=== PATIENT | male | born 1980 | race Caucasian/White ===

== ENCOUNTER 2022-04-16 07:59 | Outpatient (CLI) | payer OTHER | END 2022-04-16 08:00 | disposition home or self-care (01) | LOC: CSHWCC 07:59 | PROVIDERS: ATTEND Family Medicine | DX: E11.621 Type 2 diabetes mellitus with foot ulcer (principal); L97.429 Non-pressure chronic ulcer of left heel and midfoot with unspecified severity | CPT/HCPCS: 11042; 36416; 99203; G0463 ==

== ENCOUNTER 2022-05-31 10:33 | Emergency (ER) | payer SELFPAY ==
[2022-05-31 11:41] LABS: #Monocytes 0.7 10x3/uL (0.0-1.1); #Neutrophils 6.7 10x3/uL (1.5-8.4); %Basophils 0.3 % (0.0-2.0); %Eosinophils 0.1 % (0.0-6.0); %Monocytes 7.8 % (0.0-10.0); %Neutrophils 74.5 % (40.0-75.0); Hemoglobin 15.3 g/dL (13.5-17.5); Mean Corpuscular HGB CONC 35.2 g/dL (32.0-36.0); Mean Corpuscular Hemoglobin 28.4 pg (27.0-33.0); Mean Corpuscular Volume 80.7 fl (81.2-95.1); Mean Platelet Volume 10.4 fl (7.4-10.4); Platelet Count 208 10x3/uL (150-450); RBC Distribution Width 13.5 % (11.5-14.5); Red Blood Cell (RBC) Count 5.39 10x6/uL (4.32-5.72)
[2022-05-31 11:50] LABS: INR-International Normal Ratio 0.9; PTT 29.7 sec (22.0-33.0)
[2022-05-31 11:58] LABS: ALT (SGPT) 14 U/L (8-55); AST (SGOT) 11 U/L (5-34); Albumin 4.4 g/dL (3.5-5.0); Alkaline Phosphatase 83 U/L (40-110); Anion Gap 16 mmol/L (10-20); BUN (Urea Nitrogen) 12 mg/dL (8.9-20.6); Bilirubin, Total 1.5 mg/dL (0.2-1.2); Calc. Creatinine Clearance 0 mL/min (70-130); Calcium 9.6 mg/dL (7.8-10.44); Carbon Dioxide 25 mmol/L (22-29); Chloride 99 mmol/L (98-107); Estimated GFR 113; Globulin 3.3 g/dL (2.4-3.5); Glucose 330 mg/dL (70-105); Potassium 4.2 mmol/L (3.5-5.1); Protein, Total 7.7 g/dL (6.0-8.3); Sodium 136 mmol/L (136-145)
== END 2022-05-31 12:38 | disposition home or self-care (01) ==
LOC: CSHERS 10:33
DX: L97.529 Non-pressure chronic ulcer of other part of left foot with unspecified severity (principal); E11.621 Type 2 diabetes mellitus with foot ulcer; I10 Essential (primary) hypertension; E66.9 Obesity, unspecified; E78.00 Pure hypercholesterolemia, unspecified
CPT/HCPCS: 36415; 80053; 83605; 85025; 85610; 85730; 87040

== ENCOUNTER 2022-06-16 14:36 | Outpatient (CLI) | payer SELFPAY | END 2022-06-16 14:37 | disposition home or self-care (01) | LOC: CSHWCC 14:36 | PROVIDERS: ATTEND Nurse Practitioner Family | DX: E11.621 Type 2 diabetes mellitus with foot ulcer (principal); L97.429 Non-pressure chronic ulcer of left heel and midfoot with unspecified severity | CPT/HCPCS: 36416 ==

== ENCOUNTER 2022-06-23 08:06 | Outpatient (CLI) | payer OTHER | END 2022-06-23 08:07 | disposition home or self-care (01) | LOC: CSHWCC 08:06 | PROVIDERS: ATTEND Nurse Practitioner Family | DX: E11.621 Type 2 diabetes mellitus with foot ulcer (principal); L97.429 Non-pressure chronic ulcer of left heel and midfoot with unspecified severity | CPT/HCPCS: 99213; G0463 ==

== ENCOUNTER 2022-06-30 13:07 | Outpatient (CLI) | payer SELFPAY | END 2022-06-30 13:08 | disposition home or self-care (01) | LOC: CSHWCC 13:07 | PROVIDERS: ATTEND Nurse Practitioner Family | DX: T81.89XD Other complications of procedures, not elsewhere classified, subsequent encounter (principal) | CPT/HCPCS: 36416 ==

== ENCOUNTER 2022-07-14 08:56 | Outpatient (CLI) | payer OTHER, SELFPAY | END 2022-07-14 08:57 | disposition home or self-care (01) | LOC: CSHWCC 08:56 | PROVIDERS: ATTEND Nurse Practitioner Family | DX: T81.89XD Other complications of procedures, not elsewhere classified, subsequent encounter (principal); E11.621 Type 2 diabetes mellitus with foot ulcer; L97.419 Non-pressure chronic ulcer of right heel and midfoot with unspecified severity | CPT/HCPCS: 36416; 99213; G0463 ==

== ENCOUNTER 2023-03-30 13:20 | Inpatient (IN) | payer BC ==
[2023-03-30] MEDS ORDERED: Glucagon 1 MG/ML KIT IM PRN (13:36)
[2023-03-30] MEDS ORDERED: Dextrose 5% in Water 1,000 ML IV PRN (13:36)
[2023-03-30] MEDS ORDERED: Dextrose 50% Abboject 50 ML SYRINGE SLOW IVP PRN (13:36)
[2023-03-30] MEDS ORDERED: Ondansetron ODT 4 MG TAB PO PRN (13:48)
[2023-03-30] MEDS: Sodium Chloride 0.9% 1,000 ML IV SCH (14:24)
[2023-03-30 14:26] VITALS: BMI 34.0
[2023-03-30] MEDS ORDERED: Piperacillin/Tazobactam 3.375 GM in Sodium Chloride 0.9% 100 ML IVPB SCH ×2 (15:00→20:00)
[2023-03-30] MEDS: Vancomycin 1.5 GRAM/300 ML BAG 1.5 GM in Premix Bag 1 BAG IVPB SCH (18:35)
[2023-03-30] MEDS: Piperacillin/Tazobactam 3.375 GM in Sodium Chloride 0.9% 100 ML IVPB SCH (21:14)
[2023-03-30] MEDS: Acetaminophen 325 MG TAB PO PRN (21:14)
[2023-03-30] MEDS: Guaifenesin DM 100-10/5 ML UDCUP PO PRN (21:14)
[2023-03-30] MEDS: Famotidine 20 MG TAB PO SCH (21:15)
[2023-03-30] MEDS: Insulin Regular 300 UNITS/3 ML VIAL SC PRN (21:15)
[2023-03-31] MEDS: Vancomycin 1.5 GRAM/300 ML BAG 1.5 GM in Premix Bag 1 BAG IVPB SCH (00:20)
[2023-03-31] MEDS: Sodium Chloride 0.9% 1,000 ML IV SCH (04:46)
[2023-03-31] MEDS: Piperacillin/Tazobactam 3.375 GM in Sodium Chloride 0.9% 100 ML IVPB SCH ×3 (04:46→23:17)
[2023-03-31 05:59] LABS: #Eosinphils 0.1 10x3/uL (0.0-0.5); #Neutrophils 4.7 10x3/uL (1.5-8.4); %Basophils 0.1 % (0.0-2.0); %Eosinophils 1.7 % (0.0-6.0); %Lymphocytes 16.6 % (18.0-47.0); %Monocytes 13.9 % (0.0-10.0); %Neutrophils 67.4 % (40.0-75.0); Hematocrit 29.2 % (38.8-50.0); Hemoglobin 9.4 g/dL (13.5-17.5); Mean Corpuscular HGB CONC 32.2 g/dL (32.0-36.0); Mean Corpuscular Hemoglobin 26.8 pg (27.0-33.0); Mean Corpuscular Volume 83.2 fl (81.2-95.1); Mean Platelet Volume 10.3 fl (7.4-10.4); Platelet Count 237 10x3/uL (150-450); Red Blood Cell (RBC) Count 3.51 10x6/uL (4.32-5.72)
[2023-03-31 06:05] LABS: ALT (SGPT) 24 U/L (8-55); AST (SGOT) 18 U/L (5-34); Alkaline Phosphatase 87 U/L (40-110); Anion Gap 15 mmol/L (10-20); BUN (Urea Nitrogen) 10 mg/dL (8.9-20.6); Bilirubin, Total 0.5 mg/dL (0.2-1.2); Calc. Creatinine Clearance 229 mL/min (70-130); Calcium 7.9 mg/dL (7.8-10.44); Carbon Dioxide 21 mmol/L (22-29); Chloride 105 mmol/L (98-107); Estimated GFR 116; Globulin 3.3 g/dL (2.4-3.5); Glucose 258 mg/dL (70-105); Protein, Total 6.3 g/dL (6.0-8.3); Sodium 137 mmol/L (136-145)
[2023-03-31] MEDS: Guaifenesin DM 100-10/5 ML UDCUP PO PRN ×2 (06:21→20:10)
[2023-03-31] MEDS: Acetaminophen 325 MG TAB PO PRN (06:21)
[2023-03-31] MEDS: Insulin Regular 300 UNITS/3 ML VIAL SC PRN ×3 (06:21→17:43)
[2023-03-31 09:14] LABS: Vancomycin, Trough 8.7 ug/mL
[2023-03-31] MEDS: Famotidine 20 MG TAB PO SCH ×2 (09:51→20:09)
[2023-03-31] MEDS: VANCOMYCIN 2 GRAM/400 ML BAG 2 GM in Premix Bag 1 BAG IVPB SCH ×2 (09:52→17:43)
[2023-03-31] MEDS ORDERED: HYDROcodone/Acetaminophen 5/325 mg Tablet PO PRN (11:58)
[2023-03-31] MEDS ORDERED: Morphine 4 MG/ML VIAL SLOW IVP PRN (11:58)
[2023-03-31] MEDS: metFORMIN 500 MG TAB PO SCH (16:41)
[2023-03-31] MEDS ORDERED: Atorvastatin Calcium 20 MG TAB PO SCH (21:00)
[2023-03-31] MEDS: Lantus 1000 UNITS/10 ML VIAL SC SCH (22:11)
[2023-03-31] MEDS: NIRMATRELVIR 150 MG/RITONAVIR 100 MG PO SCH (22:14)
[2023-03-31] MEDS: HYDROcodone/Acetaminophen 10/325 mg Tablet PO PRN (23:26)
[2023-04-01] MEDS: VANCOMYCIN 2 GRAM/400 ML BAG 2 GM in Premix Bag 1 BAG IVPB SCH ×3 (02:24→18:48)
[2023-04-01 04:54] LABS: Anion Gap 12 mmol/L (10-20); BUN (Urea Nitrogen) 7 mg/dL (8.9-20.6); Calc. Creatinine Clearance 245 mL/min (70-130); Calcium 8.1 mg/dL (7.8-10.44); Carbon Dioxide 23 mmol/L (22-29); Chloride 105 mmol/L (98-107); Estimated GFR 118; Glucose 224 mg/dL (70-105); Potassium 3.9 mmol/L (3.5-5.1); Sodium 136 mmol/L (136-145)
[2023-04-01 05:03] LABS: #Monocytes 0.7 10x3/uL (0.0-1.1); #Neutrophils 5.2 10x3/uL (1.5-8.4); %Basophils 0.3 % (0.0-2.0); %Lymphocytes 18.6 % (18.0-47.0); %Monocytes 9.9 % (0.0-10.0); %Neutrophils 70.5 % (40.0-75.0); Hematocrit 28.6 % (38.8-50.0); Hemoglobin 9.3 g/dL (13.5-17.5); Mean Corpuscular HGB CONC 32.5 g/dL (32.0-36.0); Mean Corpuscular Hemoglobin 26.8 pg (27.0-33.0); Mean Corpuscular Volume 82.4 fl (81.2-95.1); Mean Platelet Volume 9.9 fl (7.4-10.4); Platelet Count 256 10x3/uL (150-450); Red Blood Cell (RBC) Count 3.47 10x6/uL (4.32-5.72); White Blood Cell (WBC) Count 7.4 10x3/uL (3.5-10.5)
[2023-04-01] MEDS: Piperacillin/Tazobactam 3.375 GM in Sodium Chloride 0.9% 100 ML IVPB SCH ×2 (06:32→14:15)
[2023-04-01] MEDS ORDERED: PROPOFOL 20 ML ONE ×2 (08:58→11:45)
[2023-04-01] MEDS ORDERED: Lantus 1000 UNITS/10 ML VIAL SC SCH (09:00)
[2023-04-01] MEDS: metFORMIN 500 MG TAB PO SCH ×2 (10:08→18:48)
[2023-04-01] MEDS: Famotidine 20 MG TAB PO SCH ×2 (10:44→22:42)
[2023-04-01] MEDS: NIRMATRELVIR 150 MG/RITONAVIR 100 MG PO SCH ×2 (10:44→22:05)
[2023-04-01] MEDS: Vancomycin 1.5 GRAM/300 ML BAG 1.5 GM in Premix Bag 1 BAG IVPB SCH (11:08)
[2023-04-01] MEDS ORDERED: Ondansetron PF 4 MG/2 ML Vial ONE (11:45)
[2023-04-01] MEDS ORDERED: Dexamethasone 4 mg/ml Vial ONE (11:45)
[2023-04-01] MEDS ORDERED: Lidocaine 1% PF 5 ML VIAL ONE ×2 (11:45→13:14)
[2023-04-01] MEDS ORDERED: Fentanyl 250 MCG/5 ML VIAL ONE (11:45)
[2023-04-01] MEDS ORDERED: Bupivacaine PF 0.5% 30 ML VIAL ONE (11:58)
[2023-04-01] MEDS ORDERED: PHENYLEPHRINE-NS 100 MCG/ML 10 ML SYRINGE ONE (12:27)
[2023-04-01 17:48] LABS: Vancomycin, Trough 14.5 ug/mL
[2023-04-01] MEDS: Guaifenesin DM 100-10/5 ML UDCUP PO PRN (18:48)
[2023-04-01] MEDS: Insulin Regular 300 UNITS/3 ML VIAL SC PRN (18:57)
[2023-04-01] MEDS: Lantus 1000 UNITS/10 ML VIAL SC SCH (22:42)
[2023-04-01] MEDS: CEFAZOLIN 2 GM in Sodium Chloride 0.9% 100 ML IVPB SCH (22:42)
[2023-04-02 04:37] LABS: Anion Gap 14 mmol/L (10-20); BUN (Urea Nitrogen) 11 mg/dL (8.9-20.6); Calc. Creatinine Clearance 220 mL/min (70-130); Calcium 8.6 mg/dL (7.8-10.44); Carbon Dioxide 23 mmol/L (22-29); Chloride 104 mmol/L (98-107); Estimated GFR 115; Glucose 339 mg/dL (70-105); Potassium 4.7 mmol/L (3.5-5.1); Sodium 136 mmol/L (136-145)
[2023-04-02 04:42] LABS: #Monocytes 0.6 10x3/uL (0.0-1.1); #Neutrophils 7.6 10x3/uL (1.5-8.4); %Basophils 0.1 % (0.0-2.0); %Lymphocytes 10.2 % (18.0-47.0); %Monocytes 6.2 % (0.0-10.0); %Neutrophils 82.6 % (40.0-75.0); Hematocrit 32.1 % (38.8-50.0); Hemoglobin 10.7 g/dL (13.5-17.5); Mean Corpuscular HGB CONC 33.3 g/dL (32.0-36.0); Mean Corpuscular Hemoglobin 27.2 pg (27.0-33.0); Mean Corpuscular Volume 81.7 fl (81.2-95.1); Mean Platelet Volume 9.8 fl (7.4-10.4); Platelet Count 317 10x3/uL (150-450); RBC Distribution Width 13.9 % (11.5-14.5); Red Blood Cell (RBC) Count 3.93 10x6/uL (4.32-5.72); White Blood Cell (WBC) Count 9.1 10x3/uL (3.5-10.5)
[2023-04-02] MEDS: Insulin Regular 300 UNITS/3 ML VIAL SC PRN ×4 (06:29→22:08)
[2023-04-02] MEDS: CEFAZOLIN 2 GM in Sodium Chloride 0.9% 100 ML IVPB SCH ×3 (06:31→22:07)
[2023-04-02] MEDS: metFORMIN 500 MG TAB PO SCH ×2 (08:35→17:17)
[2023-04-02] MEDS: NIRMATRELVIR 150 MG/RITONAVIR 100 MG PO SCH ×2 (08:36→22:07)
[2023-04-02] MEDS: Famotidine 20 MG TAB PO SCH ×2 (08:36→22:06)
[2023-04-02] MEDS: Guaifenesin DM 100-10/5 ML UDCUP PO PRN (15:10)
[2023-04-02] MEDS ORDERED: Lantus 1000 UNITS/10 ML VIAL SC SCH (21:00)
[2023-04-02] MEDS: Ciprofloxacin 500 MG TAB PO SCH (22:06)
[2023-04-03] MEDS: HYDROcodone/Acetaminophen 10/325 mg Tablet PO PRN (02:43)
[2023-04-03 04:59] LABS: #Monocytes 0.7 10x3/uL (0.0-1.1); #Neutrophils 7.8 10x3/uL (1.5-8.4); %Basophils 0.4 % (0.0-2.0); %Monocytes 6.6 % (0.0-10.0); %Neutrophils 77.1 % (40.0-75.0); Hematocrit 31.7 % (38.8-50.0); Hemoglobin 10.4 g/dL (13.5-17.5); Mean Corpuscular HGB CONC 32.8 g/dL (32.0-36.0); Mean Corpuscular Hemoglobin 26.8 pg (27.0-33.0); Mean Corpuscular Volume 81.7 fl (81.2-95.1); Mean Platelet Volume 9.6 fl (7.4-10.4); Platelet Count 309 10x3/uL (150-450); Red Blood Cell (RBC) Count 3.88 10x6/uL (4.32-5.72); White Blood Cell (WBC) Count 10.1 10x3/uL (3.5-10.5)
[2023-04-03 05:02] LABS: Anion Gap 15 mmol/L (10-20); BUN (Urea Nitrogen) 15 mg/dL (8.9-20.6); Calc. Creatinine Clearance 229 mL/min (70-130); Calcium 8.8 mg/dL (7.8-10.44); Carbon Dioxide 23 mmol/L (22-29); Chloride 101 mmol/L (98-107); Estimated GFR 116; Glucose 305 mg/dL (70-105); Potassium 4.4 mmol/L (3.5-5.1); Sodium 135 mmol/L (136-145)
[2023-04-03] MEDS: CEFAZOLIN 2 GM in Sodium Chloride 0.9% 100 ML IVPB SCH ×3 (05:52→23:23)
[2023-04-03] MEDS: Ciprofloxacin 500 MG TAB PO SCH ×2 (05:53→23:20)
[2023-04-03] MEDS: Insulin Regular 300 UNITS/3 ML VIAL SC PRN ×4 (05:53→23:24)
[2023-04-03] MEDS: Lisinopril 2.5 MG TAB PO SCH (11:59)
[2023-04-03] MEDS: Famotidine 20 MG TAB PO SCH ×2 (12:00→23:20)
[2023-04-03] MEDS: Glimepiride 4 MG TAB PO SCH (12:00)
[2023-04-03] MEDS: metFORMIN 500 MG TAB PO SCH ×2 (12:00→16:41)
[2023-04-03] MEDS: NIRMATRELVIR 150 MG/RITONAVIR 100 MG PO SCH ×2 (12:00→23:23)
[2023-04-03] MEDS ORDERED: Lantus 1000 UNITS/10 ML VIAL SC SCH (21:00)
[2023-04-03] MEDS: Guaifenesin DM 100-10/5 ML UDCUP PO PRN (23:23)
[2023-04-04 03:49] LABS: #Monocytes 0.6 10x3/uL (0.0-1.1); #Neutrophils 6.5 10x3/uL (1.5-8.4); %Basophils 0.4 % (0.0-2.0); %Lymphocytes 22.9 % (18.0-47.0); %Monocytes 6.7 % (0.0-10.0); %Neutrophils 68.5 % (40.0-75.0); Hematocrit 33.3 % (38.8-50.0); Hemoglobin 10.8 g/dL (13.5-17.5); Mean Corpuscular HGB CONC 32.4 g/dL (32.0-36.0); Mean Corpuscular Hemoglobin 26.7 pg (27.0-33.0); Mean Corpuscular Volume 82.4 fl (81.2-95.1); Mean Platelet Volume 9.7 fl (7.4-10.4); Platelet Count 334 10x3/uL (150-450); RBC Distribution Width 14.1 % (11.5-14.5); Red Blood Cell (RBC) Count 4.04 10x6/uL (4.32-5.72); White Blood Cell (WBC) Count 9.5 10x3/uL (3.5-10.5)
[2023-04-04 04:07] LABS: Anion Gap 15 mmol/L (10-20); BUN (Urea Nitrogen) 18 mg/dL (8.9-20.6); Calc. Creatinine Clearance 235 mL/min (70-130); Carbon Dioxide 25 mmol/L (22-29); Chloride 100 mmol/L (98-107); Estimated GFR 117; Glucose 261 mg/dL (70-105); Potassium 4.2 mmol/L (3.5-5.1); Sodium 136 mmol/L (136-145)
[2023-04-04] MEDS: CEFAZOLIN 2 GM in Sodium Chloride 0.9% 100 ML IVPB SCH ×3 (06:39→20:46)
[2023-04-04] MEDS: Ciprofloxacin 500 MG TAB PO SCH ×2 (06:39→20:42)
[2023-04-04] MEDS: Lisinopril 2.5 MG TAB PO SCH (10:11)
[2023-04-04] MEDS: NIRMATRELVIR 150 MG/RITONAVIR 100 MG PO SCH ×2 (10:11→20:43)
[2023-04-04] MEDS: Famotidine 20 MG TAB PO SCH ×2 (10:12→20:42)
[2023-04-04] MEDS: Glimepiride 4 MG TAB PO SCH (10:12)
[2023-04-04] MEDS: metFORMIN 500 MG TAB PO SCH ×2 (10:12→17:33)
[2023-04-04] MEDS ORDERED: Lantus 1000 UNITS/10 ML VIAL SC SCH ×2 (11:00→21:00)
[2023-04-04] MEDS ORDERED: Lidocaine 1% PF 5 ML VIAL ONE (11:38)
[2023-04-04] MEDS ORDERED: Sodium Bicarbonate 2.5 MEQ/5 ML VIAL ONE (11:38)
[2023-04-04] MEDS: HumaLOG 300 UNITS/3 ML VIAL SC PRN ×2 (13:07→20:52)
[2023-04-05 04:19] LABS: Anion Gap 14 mmol/L (10-20); BUN (Urea Nitrogen) 17 mg/dL (8.9-20.6); Calc. Creatinine Clearance 232 mL/min (70-130); Calcium 8.9 mg/dL (7.8-10.44); Carbon Dioxide 26 mmol/L (22-29); Chloride 100 mmol/L (98-107); Estimated GFR 117; Glucose 190 mg/dL (70-105); Potassium 3.8 mmol/L (3.5-5.1); Sodium 136 mmol/L (136-145)
[2023-04-05 04:33] LABS: #Basophils 0.1 10x3/uL (0.0-0.2); #Monocytes 0.7 10x3/uL (0.0-1.1); #Neutrophils 6.5 10x3/uL (1.5-8.4); %Basophils 0.5 % (0.0-2.0); %Lymphocytes 23.1 % (18.0-47.0); %Monocytes 7.4 % (0.0-10.0); %Neutrophils 66.6 % (40.0-75.0); Hematocrit 34.6 % (38.8-50.0); Hemoglobin 11.2 g/dL (13.5-17.5); Mean Corpuscular HGB CONC 32.4 g/dL (32.0-36.0); Mean Corpuscular Hemoglobin 26.5 pg (27.0-33.0); Mean Platelet Volume 9.6 fl (7.4-10.4); Platelet Count 348 10x3/uL (150-450); RBC Distribution Width 14.3 % (11.5-14.5); Red Blood Cell (RBC) Count 4.22 10x6/uL (4.32-5.72); White Blood Cell (WBC) Count 9.7 10x3/uL (3.5-10.5)
[2023-04-05] MEDS: Ciprofloxacin 500 MG TAB PO SCH ×2 (05:46→20:17)
[2023-04-05] MEDS: CEFAZOLIN 2 GM in Sodium Chloride 0.9% 100 ML IVPB SCH ×3 (05:46→21:38)
[2023-04-05] MEDS: HumaLOG 300 UNITS/3 ML VIAL SC PRN ×4 (06:00→20:22)
[2023-04-05] MEDS ORDERED: Lantus 1000 UNITS/10 ML VIAL SC SCH ×2 (08:00→21:00)
[2023-04-05] MEDS: Glimepiride 4 MG TAB PO SCH (09:26)
[2023-04-05] MEDS: Famotidine 20 MG TAB PO SCH ×2 (09:26→20:17)
[2023-04-05] MEDS: Lisinopril 2.5 MG TAB PO SCH (09:26)
[2023-04-05] MEDS: metFORMIN 500 MG TAB PO SCH ×2 (09:26→17:03)
[2023-04-05] MEDS: NIRMATRELVIR 150 MG/RITONAVIR 100 MG PO SCH (09:27)
[2023-04-06] MEDS: CEFAZOLIN 2 GM in Sodium Chloride 0.9% 100 ML IVPB SCH ×2 (05:59→14:32)
[2023-04-06] MEDS: Ciprofloxacin 500 MG TAB PO SCH (06:00)
[2023-04-06 09:24] LABS: #Basophils 0.1 10x3/uL (0.0-0.2); #Monocytes 0.9 10x3/uL (0.0-1.1); #Neutrophils 8.1 10x3/uL (1.5-8.4); %Basophils 0.6 % (0.0-2.0); %Lymphocytes 18.7 % (18.0-47.0); %Monocytes 7.6 % (0.0-10.0); %Neutrophils 70.7 % (40.0-75.0); Hematocrit 38.2 % (38.8-50.0); Hemoglobin 12.4 g/dL (13.5-17.5); Mean Corpuscular HGB CONC 32.5 g/dL (32.0-36.0); Mean Corpuscular Hemoglobin 26.8 pg (27.0-33.0); Mean Corpuscular Volume 82.7 fl (81.2-95.1); Mean Platelet Volume 9.4 fl (7.4-10.4); Platelet Count 387 10x3/uL (150-450); RBC Distribution Width 14.5 % (11.5-14.5); Red Blood Cell (RBC) Count 4.62 10x6/uL (4.32-5.72); White Blood Cell (WBC) Count 11.4 10x3/uL (3.5-10.5)
[2023-04-06 09:59] LABS: Anion Gap 13 mmol/L (10-20); BUN (Urea Nitrogen) 15 mg/dL (8.9-20.6); Calc. Creatinine Clearance 223 mL/min (70-130); Calcium 8.7 mg/dL (7.8-10.44); Carbon Dioxide 24 mmol/L (22-29); Chloride 103 mmol/L (98-107); Estimated GFR 115; Glucose 182 mg/dL (70-105); Potassium 4.2 mmol/L (3.5-5.1); Sodium 136 mmol/L (136-145)
[2023-04-06] MEDS: Lisinopril 2.5 MG TAB PO SCH (10:15)
[2023-04-06] MEDS: Glimepiride 4 MG TAB PO SCH (10:15)
[2023-04-06] MEDS: Famotidine 20 MG TAB PO SCH (10:15)
[2023-04-06] MEDS: metFORMIN 500 MG TAB PO SCH (10:15)
[2023-04-06 12:57] VITALS: BP 115/78; TEMP 97.1
== END 2023-04-06 16:01 | disposition home or self-care (01) | DRG 853 ==
LOC: INTOOBSV 13:20 → CSHTELE 13:20 → OBSVTOIN 03-31 11:59
PROVIDERS: ADMIT Family Medicine; ATTEND Internal Medicine
PROC: 3E03329 Introduction of Other Anti-infective into Peripheral Vein, Percutaneous Approach (ICD-10-PCS; 2023-03-30)
PROC: 0Y6M0Z9 Detachment at Right Foot, Partial 1st Ray, Open Approach (ICD-10-PCS; principal; 2023-04-01)
PROC: 3E0DX3Z Introduction of Anti-inflammatory into Mouth and Pharynx, External Approach (ICD-10-PCS; 2023-04-01)
PROC: 8E0ZXY6 Isolation (ICD-10-PCS; 2023-04-01)
PROC: 02HV33Z Insertion of Infusion Device into Superior Vena Cava, Percutaneous Approach (ICD-10-PCS; 2023-04-04)
PROC: B5181ZA Fluoroscopy of Superior Vena Cava using Low Osmolar Contrast, Guidance (ICD-10-PCS; 2023-04-04)
PROC: B548ZZA Ultrasonography of Superior Vena Cava, Guidance (ICD-10-PCS; 2023-04-04)
DX: A41.01 Sepsis due to Methicillin susceptible Staphylococcus aureus (principal); U07.1 COVID-19; M86.8X7 Other osteomyelitis, ankle and foot; M60.004 Infective myositis, unspecified left leg; E87.1 Hypo-osmolality and hyponatremia; J98.11 Atelectasis; E11.69 Type 2 diabetes mellitus with other specified complication; E11.621 Type 2 diabetes mellitus with foot ulcer; L97.529 Non-pressure chronic ulcer of other part of left foot with unspecified severity; E78.5 Hyperlipidemia, unspecified; E11.40 Type 2 diabetes mellitus with diabetic neuropathy, unspecified; J45.909 Unspecified asthma, uncomplicated; M65.872 Other synovitis and tenosynovitis, left ankle and foot; D64.9 Anemia, unspecified; Z79.84 Long term (current) use of oral hypoglycemic drugs; Z79.4 Long term (current) use of insulin; Z79.899 Other long term (current) drug therapy; Z79.2 Long term (current) use of antibiotics; Z90.49 Acquired absence of other specified parts of digestive tract; Z98.890 Other specified postprocedural states; Z83.3 Family history of diabetes mellitus
CPT/HCPCS: 36415; 36416; 36569; 80048; 80053; 80202; 85025; 86140; 87040; 87070; 87077; 87186; 87205; 88305; 88311; 93306; 97139; C1751; J1100; J1815; J2405; J2543; J2704; J3010; J3370; J3490; J7050; S0020

== ENCOUNTER 2024-05-17 08:32 | Outpatient (CLI) | payer BC | END 2024-05-17 08:33 | disposition home or self-care (01) | LOC: CSHWCC 08:32 | PROVIDERS: ATTEND Nurse Practitioner Family | DX: E11.621 Type 2 diabetes mellitus with foot ulcer (principal); L97.426 Non-pressure chronic ulcer of left heel and midfoot with bone involvement without evidence of necrosis; G90.09 Other idiopathic peripheral autonomic neuropathy | CPT/HCPCS: 11042; 99214; G0463 ==

== ENCOUNTER 2024-05-24 15:20 | Outpatient (CLI) | payer BC | END 2024-05-24 15:21 | disposition home or self-care (01) | LOC: CSHWCC 15:20 | PROVIDERS: ATTEND Nurse Practitioner Family | DX: E11.621 Type 2 diabetes mellitus with foot ulcer (principal); L97.426 Non-pressure chronic ulcer of left heel and midfoot with bone involvement without evidence of necrosis; G90.09 Other idiopathic peripheral autonomic neuropathy; M86.172 Other acute osteomyelitis, left ankle and foot | CPT/HCPCS: 99212; G0463 ==

== ENCOUNTER 2024-06-11 09:46 | Outpatient (CLI) | payer BC | END 2024-06-11 09:47 | disposition home or self-care (01) | LOC: CSHWCC 09:46 | PROVIDERS: ATTEND Family Medicine | DX: L97.426 Non-pressure chronic ulcer of left heel and midfoot with bone involvement without evidence of necrosis (principal); E11.621 Type 2 diabetes mellitus with foot ulcer; M86.172 Other acute osteomyelitis, left ankle and foot; G90.09 Other idiopathic peripheral autonomic neuropathy | CPT/HCPCS: 11042 ==

== ENCOUNTER 2024-06-14 13:56 | Outpatient (CLI) | payer BC | END 2024-06-14 13:57 | disposition home or self-care (01) | LOC: CSHWCC 13:56 | PROVIDERS: ATTEND Nurse Practitioner Family | DX: E11.621 Type 2 diabetes mellitus with foot ulcer (principal); L97.426 Non-pressure chronic ulcer of left heel and midfoot with bone involvement without evidence of necrosis; M86.172 Other acute osteomyelitis, left ankle and foot; G90.09 Other idiopathic peripheral autonomic neuropathy | CPT/HCPCS: 99213; G0463 ==

== ENCOUNTER 2024-06-18 12:02 | Outpatient (CLI) | payer BC | END 2024-06-18 12:03 | disposition home or self-care (01) | LOC: CSHWCC 12:02 | PROVIDERS: ATTEND Nurse Practitioner Family | DX: E11.621 Type 2 diabetes mellitus with foot ulcer (principal); L97.426 Non-pressure chronic ulcer of left heel and midfoot with bone involvement without evidence of necrosis; G90.09 Other idiopathic peripheral autonomic neuropathy; M86.172 Other acute osteomyelitis, left ankle and foot | CPT/HCPCS: 11042; 97605; 99212; G0463 ==

== ENCOUNTER 2024-06-21 12:33 | Outpatient (CLI) | payer BC | END 2024-06-21 12:34 | disposition home or self-care (01) | LOC: CSHWCC 12:33 | PROVIDERS: ATTEND Nurse Practitioner Family | DX: E11.621 Type 2 diabetes mellitus with foot ulcer (principal); L97.426 Non-pressure chronic ulcer of left heel and midfoot with bone involvement without evidence of necrosis; G90.09 Other idiopathic peripheral autonomic neuropathy; M86.172 Other acute osteomyelitis, left ankle and foot | CPT/HCPCS: 97605 ==

== ENCOUNTER 2024-06-25 08:05 | Outpatient (CLI) | payer BC | END 2024-06-25 08:06 | disposition home or self-care (01) | LOC: CSHWCC 08:05 | PROVIDERS: ATTEND Nurse Practitioner Family | DX: E11.621 Type 2 diabetes mellitus with foot ulcer (principal); L97.426 Non-pressure chronic ulcer of left heel and midfoot with bone involvement without evidence of necrosis; G90.09 Other idiopathic peripheral autonomic neuropathy; M86.172 Other acute osteomyelitis, left ankle and foot | CPT/HCPCS: 11042; 97605 ==

== ENCOUNTER 2024-06-28 11:38 | Outpatient (CLI) | payer BC | END 2024-06-28 11:39 | disposition home or self-care (01) | LOC: CSHWCC 11:38 | PROVIDERS: ATTEND Nurse Practitioner Family | DX: E11.621 Type 2 diabetes mellitus with foot ulcer (principal); L97.426 Non-pressure chronic ulcer of left heel and midfoot with bone involvement without evidence of necrosis; G90.09 Other idiopathic peripheral autonomic neuropathy; M86.172 Other acute osteomyelitis, left ankle and foot | CPT/HCPCS: 97605 ==

== ENCOUNTER 2024-07-02 13:27 | Outpatient (CLI) | payer BC | END 2024-07-02 13:28 | disposition home or self-care (01) | LOC: CSHWCC 13:27 | PROVIDERS: ATTEND Nurse Practitioner Family | DX: E11.621 Type 2 diabetes mellitus with foot ulcer (principal); L97.426 Non-pressure chronic ulcer of left heel and midfoot with bone involvement without evidence of necrosis; G90.09 Other idiopathic peripheral autonomic neuropathy; M86.172 Other acute osteomyelitis, left ankle and foot | CPT/HCPCS: 11042; 99212; G0463 ==

== ENCOUNTER 2024-07-09 13:42 | Outpatient (CLI) | payer BC | END 2024-07-09 13:43 | disposition home or self-care (01) | LOC: CSHWCC 13:42 | PROVIDERS: ATTEND Nurse Practitioner Family | DX: E11.621 Type 2 diabetes mellitus with foot ulcer (principal); L97.426 Non-pressure chronic ulcer of left heel and midfoot with bone involvement without evidence of necrosis; G90.09 Other idiopathic peripheral autonomic neuropathy; M86.172 Other acute osteomyelitis, left ankle and foot | CPT/HCPCS: 11042; 97605; 99212; G0463 ==

== ENCOUNTER 2024-07-12 08:30 | Outpatient (CLI) | payer BC | END 2024-07-12 08:31 | disposition home or self-care (01) | LOC: CSHWCC 08:30 | PROVIDERS: ATTEND Nurse Practitioner Family | DX: E11.621 Type 2 diabetes mellitus with foot ulcer (principal); E11.42 Type 2 diabetes mellitus with diabetic polyneuropathy; L97.426 Non-pressure chronic ulcer of left heel and midfoot with bone involvement without evidence of necrosis; M86.172 Other acute osteomyelitis, left ankle and foot | CPT/HCPCS: 97605 ==

== ENCOUNTER 2024-07-16 14:03 | Outpatient (CLI) | payer BC | END 2024-07-16 14:04 | disposition home or self-care (01) | LOC: CSHWCC 14:03 | PROVIDERS: ATTEND Nurse Practitioner Family | DX: E11.621 Type 2 diabetes mellitus with foot ulcer (principal); L97.426 Non-pressure chronic ulcer of left heel and midfoot with bone involvement without evidence of necrosis; E11.42 Type 2 diabetes mellitus with diabetic polyneuropathy; M86.172 Other acute osteomyelitis, left ankle and foot | CPT/HCPCS: 11042 ==

== ENCOUNTER 2024-07-19 13:15 | Outpatient (CLI) | payer BC | END 2024-07-19 13:16 | disposition home or self-care (01) | LOC: CSHWCC 13:15 | PROVIDERS: ATTEND Nurse Practitioner Family | DX: E11.621 Type 2 diabetes mellitus with foot ulcer (principal); L97.426 Non-pressure chronic ulcer of left heel and midfoot with bone involvement without evidence of necrosis; G90.09 Other idiopathic peripheral autonomic neuropathy; M86.172 Other acute osteomyelitis, left ankle and foot | CPT/HCPCS: 29445; 99213; G0463 ==

== ENCOUNTER 2024-07-23 12:00 | Outpatient (CLI) | payer BC | END 2024-07-23 12:01 | disposition home or self-care (01) | LOC: CSHWCC 12:00 | PROVIDERS: ATTEND Nurse Practitioner Family | DX: E11.621 Type 2 diabetes mellitus with foot ulcer (principal); L97.426 Non-pressure chronic ulcer of left heel and midfoot with bone involvement without evidence of necrosis; G90.09 Other idiopathic peripheral autonomic neuropathy; M86.172 Other acute osteomyelitis, left ankle and foot | CPT/HCPCS: 11042 ==

== ENCOUNTER 2024-07-26 14:44 | Outpatient (CLI) | payer BC | END 2024-07-26 14:45 | disposition home or self-care (01) | LOC: CSHWCC 14:44 | PROVIDERS: ATTEND Nurse Practitioner Family | DX: E11.621 Type 2 diabetes mellitus with foot ulcer (principal); L97.426 Non-pressure chronic ulcer of left heel and midfoot with bone involvement without evidence of necrosis; M86.172 Other acute osteomyelitis, left ankle and foot; G90.09 Other idiopathic peripheral autonomic neuropathy | CPT/HCPCS: 29445; 99213; G0463 ==

== ENCOUNTER 2024-07-30 13:40 | Outpatient (CLI) | payer BC | END 2024-07-30 13:41 | disposition home or self-care (01) | LOC: CSHWCC 13:40 | PROVIDERS: ATTEND Nurse Practitioner Family | DX: E11.621 Type 2 diabetes mellitus with foot ulcer (principal); L97.426 Non-pressure chronic ulcer of left heel and midfoot with bone involvement without evidence of necrosis; E11.69 Type 2 diabetes mellitus with other specified complication; M86.172 Other acute osteomyelitis, left ankle and foot; G90.09 Other idiopathic peripheral autonomic neuropathy | CPT/HCPCS: 11042 ==

== ENCOUNTER 2024-08-14 09:32 | Outpatient (CLI) | payer BC | END 2024-08-14 09:33 | disposition home or self-care (01) | LOC: CSHWCC 09:32 | PROVIDERS: ATTEND Nurse Practitioner Family | DX: E11.621 Type 2 diabetes mellitus with foot ulcer (principal); L97.426 Non-pressure chronic ulcer of left heel and midfoot with bone involvement without evidence of necrosis; G90.09 Other idiopathic peripheral autonomic neuropathy; M86.172 Other acute osteomyelitis, left ankle and foot | CPT/HCPCS: 11042; 99212; G0463 ==

== ENCOUNTER 2024-08-21 15:28 | Outpatient (CLI) | payer BC | END 2024-08-21 15:29 | disposition home or self-care (01) | LOC: CSHWCC 15:28 | PROVIDERS: ATTEND Nurse Practitioner Family | DX: E11.621 Type 2 diabetes mellitus with foot ulcer (principal); L97.426 Non-pressure chronic ulcer of left heel and midfoot with bone involvement without evidence of necrosis; E11.69 Type 2 diabetes mellitus with other specified complication; M86.172 Other acute osteomyelitis, left ankle and foot; G90.09 Other idiopathic peripheral autonomic neuropathy | CPT/HCPCS: 99214; G0463 ==